=== PATIENT | female | born 1965 | race Caucasian/White ===

== ENCOUNTER 2020-07-03 09:00 | Inpatient (IN) | payer OTHER ==
[~2020-07-03] VITALS: Ht 177.8 cm; Wt 121.8 kg
[~2020-07-03 09:00] MED LIST: CELEBREX100 MG PO; VITAMIN D3125 MC2 PO; ZYRTEC10 MG PO
--- NOTE | 2020-07-03 13:03 | NUR ---
07/03/20 1303 Sury Nichole 1251 PT ARRIVED IN PACU SLEEPY WITH NO C/O'S. TONEY DRAIN PRESENT IN CENTER OF DRSG ON FRONT OF NECK.
--- NOTE | 2020-07-03 14:18 | NUR ---
NONCOMPRESSED SUCTION BULB NOTED. BULB COMPRESSED BUT WILL NOT STAY COMPRESSED FOR MORE THAN 3 MIN DESPITE MULTIPLE ATTEMPTS. DRESSING LEAK IS SUSPECTED. MD NOTIFIED. NEW BULB APPLIED WITH NO CHANGE. ORDERS RECIEVED FROM MD TO ATTACH BULB TO LOW CONTINUOUS WALL SUCTION. THIS WAS DONE BY TRIMMING THE END OF THE WALL SUCTION TUBING TO ALLOW FOR BETTER SEAL WITH BULB DRAIN. SUCTION SET TO LOW (40) AND BULB IS MOSTLY COMPRESSED BY WALL SUCTION.
--- NOTE | 2020-07-03 14:20 | NUR ---
1355: PATIENT BACK IN DAY SURGERY ROOM FROM PACU AWAITING BED SPACE ON MED-SURG. DENIES PAIN. VS CHECKED. SCANT AMOUNT OF RED DRAINAGE ON LEFT SIDE OF DRESSING. SCDs ON. IV SITE WNL. TONEY DRAIN TO ANTERIOR NECK. ARRIVED TO ROOM SUCTIONED DOWN. AFTER A COUPLE MINUTES, TONEY DRAIN LOST SUCTION. DRAIN SQUEEZED DOWN X 3 TO REPLACE SUCTION. DRAIN WOULD NOT KEEP SUCTION. DR. ROSADO NOTIFIED. DR. ROSADO SAID TO HOOK TONEY DRAIN UP TO LOW CONTINUOUS WALL SUCTION. AT BEDSIDE. CALL LIGHT WITHIN REACH.
--- NOTE | 2020-07-03 14:31 | NUR ---
CHECKED PATIENT. PATIENT STATES DOING WELL. DENIES PAIN. VS CHECKED. TONEY DRAIN HOOKED UP TO WALL SUCTION. TONEY SUCTIONED DOWN AND WNL. CALL LIGHT WITHIN REACH. AT BEDSIDE.
--- NOTE | 2020-07-03 15:31 | NUR ---
1515: VS CHECKED. PATIENT ASSISTED OOB TO BSC. VOID WITHOUT DIFFICULT LARGE AMOUNT. ASSISTED BACK TO BED. SCDs REPLACED. CALL LIGHT WITHIN REACH. AT BEDSIDE.
--- NOTE | 2020-07-03 15:53 | NUR ---
IN TO ADMIN MEDICATION. IV SITE FLUSHED, FLUIDS HOODED BACK UP RUNNING AT 75ML/HR. PT RESTING IN LOCKED AND LOWERED BED, SIDE RAILS UP, CALL LIGHT WITHIN REACH. AT THE BEDSIDE. NO FURTHER REQUESTS AT THIS TIME.
--- NOTE | 2020-07-03 16:12 | NUR ---
PATIENT WATCHING TV WITH AT BEDSIDE. DENIES PAIN. VS CHECKED. TONEY DRAIN PATENT HOOKED UP TO LOW CONTINUOUS WALL SUCTION. ANTERIOR NECK DRESSING INTACT WITH SMALL AMOUNT OF RED DRAINAGE ON LEFT SIDE OF DRESSING. IV SITE WNL. SCDs ON. TOLERATING WATER. CALL LIGHT WITHIN REACH.
--- NOTE | 2020-07-03 17:46 | NUR ---
LE 1729 TONEY BULB LOST SUCTION AND INFLATED. COLLAPSED BULB AND RE-APPLIED TO SUCTION, KEEPING BULB COMPRESSED. C/O SORE NECK 2/10. SITTING UP IN BED. JELLO AND SPRITE GIVEN. OXYGEN REMOVED. 1744 TYLENOL 1000MG PO GIVEN FOR 2/10 NECK PAIN. O2 SATS 94% ON RA. SITTING AT SIDE OF BED, WITH SPOUSE AT BEDSIDE. TONEY SAFETY PINNED TO GOWN FOR COMFORT.
--- NOTE | 2020-07-03 18:11 | NUR ---
LE 1800 TO MED SURG ROOM 107. CALL LIGHT IN PLACE. SPOUSE AT BEDSIDE. TONEY HOOKED TO LOW CONTINUOUS SUCTION AT 40MMHG. 1800 REPORT GIVEN TO TUMBLER DRIER OPERATOR.
--- NOTE | 2020-07-03 18:29 | NUR ---
PT ARRIVED VIA BED. PT IS ALERT AND ORIENTED. TONEY PLACED ON LIWS AT 37 TO KEEP BULB SUCTIONED. PT DENEIS DIFFICULTY BREATHING. DRESSING TO ANTERIOR NECK WITH ACTICOAT IN PLACE AND SMALL AMOUNT OF SEROSANGUINOUS DRAINAGE. LUNGS CLEAR. VITALS TAKEN AND DOCUMENTED. LR AT 85 STARTED IN RIGHT IV SITE. SCD'S AND CPOX PLACED. DINNER ORDERED. CALL LIGHT IN REACH. AT BEDSIDE. ASSESSMENT COMPLETED AND DOCUMETNED.
--- NOTE | 2020-07-03 19:34 | NUR ---
REPORT RECEIVED FROM DAY SHIFT RN. PT LYING IN BED ALERT AND ORIENTED. DENIES PAIN OR NAUSEA. TONEY BULB TO LIWS WITH SEROSANG DRAINAGE. SCD'S IN PLACE. IVF INFUSING. ORIENTED PT TO NURSE CALL LIGHT. WHITE BOARD UPDATED. NO NEEDS AT THIS TIME. CALL LIGHT IN HAND.
--- NOTE | 2020-07-03 19:45 | NUR ---
SBA. BEDSIDE COMMODE. PATIENT VOIDED 1400ML. PATIENT SAT BY THE BED FOR A FEW MINUTES. PATIENT IS BACK IN BED. SCD'S BACK ON. CALL LIGHT WITHIN REACH.
--- NOTE | 2020-07-03 22:00 | NUR ---
EVENING ASSESSMENT COMPLETE. SCHEDULED MEDS ADMINISTERED PER EMAR. PT DENIES PAIN OR NAUSEA. NO C/O NUMBNESS OR TINGLING IN LIPS OR JAW. ANTERIOR NECK DRESSING INTACT WITH SMALL AMOUNT OF RED DRAINAGE. BULB SUCTION TO LIWS. 20 ML DRAINED FROM BULB. PT UP TO AMB TWO LAPS AROUND NURSING UNIT WITH SBA. GAIT STEADY, RAVINDRA WELL. BACK TO BED. SCD'S AND CPOX IN PLACE. IVF INFUSING PER ORDER. PT DENIES QUESTIONS OR CONCERNS. CALL LIGHT WITHIN REACH.
--- NOTE | 2020-07-04 00:17 | NUR ---
CALL LIGHT ANSWERED. PT UP TO BR WITH SBA TO VOID 900 ML CLEAR YELLOW URINE. GAIT STEADY. BACK TO BED, RAVINDRA WELL. PT DENIES NUMBNESS OR TINGLING IN FACE. NO C/O PAIN OR NAUSEA. SCD'S AND CPOX IN PLACE. DR. ROSADO IN TO SEE PT. NO FURTHER NEEDS.
--- NOTE | 2020-07-04 00:34 | NUR ---
PRN ADMINISTERED FOR POSTERIOR NECK "DISCOMFORT" AND MILD HEADACHE. PT REFUSED PERCOCET SHE DOES NOT TOLERATE OPIATES WELL. NECK ROLL PROVIDED FOR COMFORT. PUDDING, CRACKERS, AND FRESH WATER GIVEN.
--- NOTE | 2020-07-04 02:21 | NUR ---
VS AND I&O COMPLETE. PT REPORTS DISCOMFORT IMPROVED SINCE PRN ADMINISTRATION. DENIES NUMBNESS OR TINGLING IN FACE. NO PAIN OR NAUSEA. NO SWALLOWING OR BREATHING ISSUES. CPOX IN PLACE. NECK DRESSING UNCHANGED SINCE BEGINNING OF THIS SHIFT.
--- NOTE | 2020-07-04 02:56 | NUR ---
CALL LIGHT ANSWERED. PT UP TO BR WITH SBA TO VOID. GAIT STEADY. PT SITTING IN RECLINER AT THIS TIME. CALL LIGHT IN REACH.
--- NOTE | 2020-07-04 05:33 | NUR ---
CALL LIGHT ANSWERED. PT UP TO BR WITH SBA TO VOID. BACK TO BED, RAVINDRA WELL. GAIT STEADY. VS AND I&O COMPLETE. ASSESSMENT DONE. PT DENIES NUMBNESS OR TINGLING IN FACE. NO SWALLOWING OR BREATHING ISSUES. AGREES SHE IS COMFORTABLE AT THIS TIME. NECK DRESSING INTACT WITH SMALL AMOUNT SEROSANG DRAINAGE, UNCHANGED THIS SHIFT. BULB SUCTION WITH 20 ML SEROSANG DRAINAGE. CONNECTED TO LIWS. PT EDUCATION PROVIDED ON HOW TO EMPTY BULB. PT EXPRESSESS UNDERSTANDING.
--- NOTE | 2020-07-04 06:20 | NUR ---
SCHEDULED MEDS ADMINISTERED PER EMAR. NO SWALLOWING ISSUES NOTED. COFFEE PROVIDED. NO ADDITIONAL NEEDS AT THIS TIME. CALL LIGHT IN REACH.
--- NOTE | 2020-07-04 07:49 | NUR ---
Patient in bed, alert and oriented x4. Patient's hob elevated. Pt denies sob at this time. Dressing to anterior neck is CDI; marianne drain intact, patent to LIWS. Scant sarosang drainage noted in tubing. Patient reports she is doing well this morning. Per report, she has been up several times ambulating. No needs at this time.
--- NOTE | 2020-07-04 08:09 | NUR ---
PATIENT SITTING UP IN BED. IN ROOM. WHITE BOARD UPDATED. ICE WATER GIVEN. CALL LIGHT WITHIN REACH. NO OTHER NEEDS AT THIS TIME
--- NOTE | 2020-07-04 08:45 | NUR ---
Admin Tylenol 1000mg po for reports of 2/10 head/neck pain.
--- NOTE | 2020-07-04 09:14 | NUR ---
PATIENT RESTING IN BED. IN ROOM. VITAL SIGNS AND I&O DONE. PATIENT USES THE BATHROOM. ONE PERSON ASSISTING. PATIENT BACKS TO BED. CALL LIGHT WITHIN REACH. NO OTHER NEEDS AT THIS TIME
--- NOTE | 2020-07-04 10:29 | NUR ---
Dr. Zhu in to see patient. Drain removed from anterior neck by Dr. Zhu. Patient tolerated removal well. Steri strip applied to incisions by Dr. Zhu. No drainage noted upon removal. Hob remains elevated. Pt's airway remains clear and she has no sob at this time. Personal supplies and call light within reach.
[2020-07-04] MEDS ORDERED: OFIRMEV1000 MG/10 IV (10:34)
[2020-07-04] MEDS ORDERED: CALCIUM CARBON200 MG PO (10:35)
[2020-07-04] MEDS ORDERED: LEVOTHYROXINE150 MCG PO (10:36)
--- NOTE | 2020-07-04 10:51 | OR ---
[facility] [address] [place], [place] [address] Signed DATE OF OPERATION: 07/03/2020 SURGEON: Jack Rosado MD PREOPERATIVE DIAGNOSES: 1. Multinodular thyroid goiter. 2. Morbid obesity. POSTOPERATIVE DIAGNOSES: 1. Multinodular thyroid goiter. 2. Morbid obesity. PROCEDURE: Total thyroidectomy. ANESTHESIA: General endotracheal; Marti Deng CRNA. INDICATIONS: This 54-year-old morbidly obese white woman (BMI 39.6) is a patient of Dr. Rodriguez in [place], [place] as well as Dr. Matteo Martinez in [place]. She has been found to have a multinodular goiter. She does not have severe dysphagia or air hunger. She has been followed by Dr. Martinez with the problem and fine-needle aspiration biopsy has been performed on more than one of the nodules, which did not confirm malignancy. The size of the goiter is such that an extension of her substernal area is likely and concerns were maintained for appropriate followup and on that basis, a total thyroidectomy has been recommended by her manager primary. The patient understands the risks of bleeding, infection, recurrent laryngeal nerve injury, external laryngeal nerve injury, need for other additional treatment should malignancy be incidentally found. Understanding this, she wished to proceed with total thyroidectomy today. FINDINGS: A very bulky left thyroid lobe was noted with multiple nodules. The process extended into the tracheoesophageal groove. Meticulous care was maintained to excise all of the thyroid and to preserve parathyroid glands and recurrent laryngeal nerve and so on. She tolerated procedure well though it was relatively prolonged. BLOOD LOSS: Electronically Signed By: JACK ROSADO MD 07/04/20 1051 PATIENT NAME: MIAH SANDERSON OPERATIVE REPORT DATE OF : 63 REPORT #: [id number] PHYSICIAN: JACK ROSADO MD PCP: MATTEO MARTINEZ MD REPORT IS CONFIDENTIAL AND NOT TO BE RELEASED WITHOUT AUTHORIZATION [facility] [address] [place], [place] [address] Signed Certainly less than 20 mL in aggregate, probably less. The left and right recurrent laryngeal nerves were ultimately identified and unharmed grossly. Parathyroid tissue was left in situ posteriorly on the left and right side. DESCRIPTION OF PROCEDURE: The patient was brought to the operating room, given a general endotracheal anesthetic. Preoperative antibiotic Ancef was given. Sequential compression device stockings were used. Heparin was not administered. After satisfactory intubation, a shoulder roll was placed and mild neck extension undertaken. A previously identified natural skin crease of the neck had been marked. The arms were placed at the side with careful padding of all pressure points. A william lounge position was configured for the operative table. The neck and upper torso were prepared with a chlorhexidine solution and draped sterilely. A natural skin crease was additionally marked and incision was made extending from the medial borders of the sternocleidomastoid muscle. Dissection was carried through the skin and dermis sharply. Needlepoint electrocautery was used to transect the subcutaneous tissue and ultimately the platysma. Superior and inferior flaps were developed with blunt and electrocautery dissection. Gelpi retractors were placed and midline strap muscles were elevated and the avascular plane between them was incised vertically. Attention was turned toward the left side first. Using sharp dissection, the sternal thyroid and sternal hyoid muscles were freed with sharp dissection from the underlying thyroid gland. Palpation revealed the gland to be multinodular and relatively bulky and extending inferiorly. With the usual maneuvers, the superior pole vessels were isolated individually and ligated with 4-0 silk ties and liberal use of clips in this occasion given the depth of her neck and so on. The inferior pole was similarly mobilized and ultimately, the thyroid gland could be delivered into the wound more fully. The posterior aspect of the thyroid filmy attachments were freed with blunt and minimal electrocautery dissection ultimately freeing them from the posterior elements including what appeared to be parathyroid glands and later identified a recurrent laryngeal nerve. The ligament of Ricks was carefully dissected free and clips were used again liberally so as to provide hemostasis. The avascular plane between the left thyroid lobe and the isthmus was freed with blunt and electrocautery dissection. So as to leave the specimen intact, the isthmus was not divided at this point. The posterior elements appeared to be hemostatic and ultimately a left recurrent laryngeal nerve was identified and clearly unharmed. The left side of the neck was packed with gauze and attention turned to the right side. With similar technique, the right lobe was mobilized. The right lobe had more dense attachments to surrounding muscle. With similar technique, clips and 4-0 silk ties were used to mobilize it fully. Very dense 1.5 cm nodule was noted in the right upper pole. The remaining lobe had smaller nodules. The area of parenchyma, which appeared to be Electronically Signed By: JACK ROSADO MD 07/04/20 1051 PATIENT NAME: MIAH SANDERSON OPERATIVE REPORT DATE OF : 63 REPORT #: [id number] PHYSICIAN: JACK ROSADO MD PCP: MATTEO MARTINEZ MD REPORT IS CONFIDENTIAL AND NOT TO BE RELEASED WITHOUT AUTHORIZATION [address] [place], [place] [address] Signed densely adherent to the posterior aspect likely in the course of the recurrent laryngeal nerve was left in situ and transected with blunt and sharp dissection allowing for the thyroid to be ultimately mobilized and allowing for division of the ligament of Ricks more fully. Avascular plane in the pretracheal space was freed and the specimen removed. The left lobe was marked with a suture for a pathologic orientation. A photograph was taken. Irrigation was undertaken and hemostasis was considered good. Normal amounts of needlepoint cautery were used to assure hemostasis. Though a dry field was noted, some Shirley was placed into the peritracheal space bilaterally and a 7 mm flat Aashish drain was placed in the depths of the wound for postoperative drainage. The strap muscles were reapproximated to the midline with interrupted 2-0 Vicryl, the platysmal layer similarly reapproximated with interrupted 2-0 Vicryl and skin closed with interrupted 4-0 Vicryl. The drain emanated through the incision itself was secured to the skin with a 2-0 nylon suture and attached to bulb suction. There was minimal . The skin was reapproximated additionally with 0.5 inch Steri-Strips and a silver sponge dressing. The drain was attached to bulb suction, which had minimal drainage. The patient was carefully allowed to emerge from anesthesia, extubated, and taken to recovery room in good condition having suffered no complication. Sponge, needle, and instrument counts reported as correct x3. Blood loss was less than 20 mL. MD LINDA Foster/BELEM /[id number] cc: MD Dr. Michael Mckeon Copies: MATTEO MARTINEZ MD ~ Electronically Signed By: JACK ROSADO MD 07/04/20 1051 PATIENT NAME: MARIA EMIAH Lisa OPERATIVE REPORT DATE OF : 63 REPORT #: [id number] PHYSICIAN: JACK ROSADO MD PCP: MATTEO MARTINEZ MD REPORT IS CONFIDENTIAL AND NOT TO BE RELEASED WITHOUT AUTHORIZATION
--- NOTE | 2020-07-04 11:00 | NUR ---
Spoke with Yanet. She denies needs to go home. Plans on dc today with her spouse. She has DME from previous surgery and not currently using.
[2020-07-04] MEDS ORDERED: ACETAMINOPHEN500 M1 PO (11:03)
--- NOTE | 2020-07-04 12:54 | NUR ---
PT ALERT, ORIENTED AND SUPPORTED BY HER LESTER. PT HAS RECENTLY MOVED TO [place] FROM [facility] AND GETTING MEDICALLY ESTABLISHED HAS BEEN A CHALLENGE. PT EXPRESSED THAT SHE IS THANKFUL FOR THE CARE SHE HAS RECEIVED AT [facility]. GAVE PT A Ayaz KUMARPOST AND HAD PRAYER WITH BOTH. PT EXPECTS TO DC SOON TODAY. WILL FOLLOW NEEDED
== END 2020-07-04 11:37 | disposition home or self-care (01) | DRG 627 ==
LOC: DS 09:00 → OPS 09:00 → DS 09:30 → OPS 10:00 → DSVR 13:10 → MS 17:59
PROVIDERS: ADMIT Surgery; ATTEND Surgery
PROC: 0GTH0ZZ Resection of Right Thyroid Gland Lobe, Open Approach (ICD-10-PCS; 2020-07-03)
PROC: 0GTG0ZZ Resection of Left Thyroid Gland Lobe, Open Approach (ICD-10-PCS; principal; 2020-07-03 10:00)
DX: E04.2 Nontoxic multinodular goiter (principal); E78.2 Mixed hyperlipidemia; E80.4 Gilbert syndrome; E66.01 Morbid (severe) obesity due to excess calories; F32.9 Major depressive disorder, single episode, unspecified; Z68.39 Body mass index [BMI] 39.0-39.9, adult; Z88.8 Allergy status to other drugs, medicaments and biological substances; Z88.5 Allergy status to narcotic agent; Z79.899 Other long term (current) drug therapy; Z79.1 Long term (current) use of non-steroidal anti-inflammatories (NSAID)
CPT/HCPCS: 00320; 36415; 80048; J0330; J0690; J1100; J2001; J2250; J2405; J2704; J3475; J7121

== ENCOUNTER 2021-12-25 10:03 | Emergency (ER) | payer OTHER ==
[~2021-12-25] VITALS: Ht 177.8 cm; Wt 124.7 kg
[~2021-12-25 10:03] MED LIST changes: +ACETAMINOPHEN500 M1 PO; +CALCIUM CARBON200 MG PO; +LEVOTHYROXINE150 MCG PO; +OFIRMEV1000 MG/10 IV
[2021-12-25] MEDS ORDERED: AMLODIPINE BESYL5 MG PO (14:49)
--- NOTE | 2021-12-25 22:58 | EKG ---
[facility] [address] [facility] [place], [place] [address] Signed Normal sinus rhythm Minimal voltage criteria for LVH, may be normal variant ( R in aVL ) Borderline ECG No previous ECGs available Confirmed by VÍCTOR NICHOLAS MD ([id number]) on 12/25/2021 10:58:05 PM Electronically Signed By: VÍCTOR NICHOLAS MD 12/25/21 2258 PATIENT NAME: MIAH SANDERSON Lisa Electrocardiogram DATE OF : 63 PHYSICIAN: VÍCTOR NICHOLAS MD REPORT #: [id number] REPORT IS CONFIDENTIAL AND NOT TO BE RELEASED WITHOUT AUTHORIZATION
== END 2021-12-25 15:32 | disposition home or self-care (01) ==
LOC: ED 10:03
DX: I10 Essential (primary) hypertension (principal); H53.2 Diplopia; Z88.6 Allergy status to analgesic agent; Z88.5 Allergy status to narcotic agent; Z79.899 Other long term (current) drug therapy
CPT/HCPCS: 36415; 80048; 85025; 93005; 93010; 99285-25

== ENCOUNTER 2022-02-13 06:20 | Day surgery (SDC) | payer OTHER ==
[~2022-02-13] VITALS: Ht 177.8 cm; Wt 120.0 kg
[~2022-02-13 06:20] MED LIST changes: +AMLODIPINE BESYL5 MG PO
[2022-02-13] MEDS ORDERED: NORVASC10 MG PO (06:42)
--- NOTE | 2022-02-13 13:16 | OR ---
[facility] [address] [place], [place] [address] Signed DATE OF OPERATION: 02/13/2022 SURGEON: Inocencia Castellanos MD PREOPERATIVE DIAGNOSIS: Screening. POSTOPERATIVE DIAGNOSES: 1. 5 mm polyp at 7 cm. 2. 4 mm polyp at 40 cm. 3. Minimal internal and external hemorrhoids. PROCEDURE: Colonoscopy with hot biopsy. ESTIMATED BLOOD LOSS: None. INDICATIONS: Yanet is a 56-year-old obese female, asked to see me for her initial screening colonoscopy. She has no lower GI complaints. There is no family history of colon cancer or polyps. She explained to me that her has been through two colonoscopies. Consequently, she is familiar with this process. In the office, I gave her a pamphlet on colonoscopy. She understands the nature of that test. There is risk including, but not limited to gas bloating, crampy abdominal pain, bleeding, perforation requiring surgery, and missed diagnosis. We also discussed the need for IV conscious sedation. She had expressed understanding and wished to proceed. PROCEDURE NOTE: Yanet was taken into our endoscopy suite and placed in the left lateral decubitus position. She was given a total of 10 mg of Versed and 150 mcg of fentanyl. A digital rectal exam was performed and this showed small circumferential external hemorrhoids. She had good sphincter tone. There were no masses. The adult colonoscope was introduced and advanced under direct visualization of the camera up into the cecum. It took some extra sedation and abdominal compression in order to advance the scope. Her prep was quite excellent. We could easily see the appendiceal orifice and the ileocecal valve. The scope was then slowly withdrawn. We took pictures throughout for photodocumentation. The two polyps mentioned above were easily removed with the help of hot biopsy forceps. There was no diverticulosis. Once in the rectum, the scope had been retroflexed and she has very minimal internal hemorrhoid tissue. After this, the Electronically Signed By: INOCENCIA CASTELLANOS MD 02/13/22 1316 PATIENT NAME: YANET SANDERSON OPERATIVE REPORT DATE OF : 63 REPORT #: [id number] PHYSICIAN: INOCENCIA CASTELLANOS MD PCP: MIKI BERNAL MD REPORT IS CONFIDENTIAL AND NOT TO BE RELEASED WITHOUT AUTHORIZATION [facility] [address] [place], [place] [address] Signed gas was suctioned out and the colonoscope removed. Yanet tolerated the procedure quite well. RECOMMENDATIONS: I will see Yanet back in my office in 7 to 14 days to review her results. Inocencia Castellanos MD ALB/MANISHL /[id number] cc: MD Alejandra Eubanks MD Copies: INOCENCIA CASTELLANOS MD ~ Electronically Signed By: INOCENCIA CASTELLANOS MD 02/13/22 1316 PATIENT NAME: YANET SANDERSON OPERATIVE REPORT DATE OF : 63 REPORT #: [id number] PHYSICIAN: INOCENCIA CASTELLANOS MD PCP: MIKI BERNAL MD REPORT IS CONFIDENTIAL AND NOT TO BE RELEASED WITHOUT AUTHORIZATION
--- NOTE | 2022-02-14 14:18 | PATH ---
[facility] [address] [facility] [place], [place] [address] Signed SPECIMEN(S): A RECTAL POLYP AT 7 CM SPECIMEN(S): B DESCENDING/LEFT COLON POLYP AT 40 CM SPECIMEN SOURCE: A. RECTAL POLYP AT 7 CM B. DESCENDING/LEFT COLON POLYP AT 40 CM CLINICAL HISTORY: Screening colonoscopy. FINAL PATHOLOGIC DIAGNOSIS: A. Rectum, polyp at 7 cm, polypectomy: - Tubular adenoma. - Negative for high-grade dysplasia or malignancy. B. Colon, descending/left, polyp at 40 cm, polypectomy: - Tubular adenoma. - Negative for high-grade dysplasia or malignancy. NAL:cml:C2NR MICROSCOPIC EXAMINATION: Histologic sections of all submitted blocks are examined by light microscopy. These findings, together with the gross examination, support the pathologic diagnosis. GROSS DESCRIPTION: Two specimens are received in two containers labeled with "BW." A. The specimen, labeled "BW, 1," and designated on the requisition "rectum polyp at 7 cm," is received in formalin and consists of three fragments of pink-thomas tissue (0.3 cm in greatest dimension). The specimen is submitted entirely in cassette (A1). B. The specimen, labeled "BW, 2," and designated on the requisition "descending/left colon polyp at 40 cm," is received in formalin and consists of one fragment of pink-thomas tissue (0.3 cm in greatest dimension). The specimen is submitted entirely in cassette (B1). AC (under the direct supervision of a pathologist) The Gross Description was prepared using a voice recognition system. The report was reviewed for accuracy; however, sound-alike word errors, addition and/or deletions may occur. If there is any question about this report, please contact Client Services. PERFORMING LABORATORY: PATIENT NAME: MIAH SANDERSON PATHOLOGY DATE OF : 63 REPORT #: [id number] PHYSICIAN: KAYLA PATHOLOGY PCP: MIKI BERNAL MD REPORT IS CONFIDENTIAL AND NOT TO BE RELEASED WITHOUT AUTHORIZATION [facility] [address] [place] [address] Signed The technical component was performed by [facility] [address] [address] (CLIA# [id number]). Professional interpretation was performed by [facility], [address] [address] (CLIA# [id number]). Diagnostician: Nancy Liu MD Pathologist Electronically Signed 02/14/2022 Copies: ~ PATIENT NAME: MIAH SANDERSON PATHOLOGY DATE OF : 63 REPORT #: [id number] PHYSICIAN: KAYLA PERSON PCP: MIKI BERNAL MD REPORT IS CONFIDENTIAL AND NOT TO BE RELEASED WITHOUT AUTHORIZATION
== END 2022-02-13 08:25 | disposition home or self-care (01) ==
LOC: OPS 06:20 → DS 06:20 → OPS 07:30
PROVIDERS: ATTEND Colon & Rectal Surgery
PROC: 0DBE8ZX Excision of Large Intestine, Via Natural or Artificial Opening Endoscopic, Diagnostic (ICD-10-PCS; principal; 2022-02-13 07:30)
DX: Z12.11 Encounter for screening for malignant neoplasm of colon (principal); D12.8 Benign neoplasm of rectum; D12.4 Benign neoplasm of descending colon; K64.4 Residual hemorrhoidal skin tags; K64.8 Other hemorrhoids; E78.5 Hyperlipidemia, unspecified; I10 Essential (primary) hypertension; E03.9 Hypothyroidism, unspecified; E66.9 Obesity, unspecified; E55.9 Vitamin D deficiency, unspecified; E80.4 Gilbert syndrome; Z88.6 Allergy status to analgesic agent; Z88.5 Allergy status to narcotic agent; Z68.38 Body mass index [BMI] 38.0-38.9, adult
CPT/HCPCS: 99153; G0500; J0690; J2250; J3010; J7121